=== PATIENT | female | born 1960 | race Caucasian/White ===

== ENCOUNTER 2016-08-14 14:44 | Outpatient (CLI) | payer MEDICAID | END 2016-08-14 14:45 | disposition home or self-care (01) | DX: M75.81 Other shoulder lesions, right shoulder (principal); M25.511 Pain in right shoulder ==

== ENCOUNTER 2017-04-11 08:00 | Outpatient (CLI) | payer OTHER | END 2017-04-11 23:59 | disposition home or self-care (01) | LOC: LAB.R 08:00 | PROVIDERS: ATTEND Nurse Practitioner Family | DX: Z12.11 Encounter for screening for malignant neoplasm of colon (principal) | CPT/HCPCS: 82270 ==

== ENCOUNTER 2017-07-05 15:27 | Outpatient (CLI) | payer OTHER ==
[2017-07-05 19:05] LABS: ALBUMIN/GLOBULIN RATIO 1.8 (1.0-2.2); BILIRUBIN,TOTAL 0.4 mg/dL (0.2-1.0); BUN - BLOOD UREA NITROGEN 21 mg/dL (6-20); CARBON DIOXIDE - CO2 25 mmol/L (21-32); CHLORIDE 105 mmol/L (101-111); CREATININE 0.7 mg/dL (0.4-1.0); GFR - MDRD 86 (>89); GLUCOSE 86 mg/dL (70-100); POTASSIUM 3.5 mmol/L (3.5-5.0); SODIUM 137 mmol/L (135-145); TOTAL PROTEIN 6.7 g/dL (6.7-8.2)
[2017-07-05 19:18] LABS: THYROID STIMULATING HORMONE 9.22 uIU/mL (0.34-5.60)
== END 2017-07-05 15:28 | disposition home or self-care (01) ==
LOC: LAB.S 15:27
PROVIDERS: ATTEND Nurse Practitioner Family
DX: Z13.1 Encounter for screening for diabetes mellitus (principal); Z13.228 Encounter for screening for other metabolic disorders; E03.9 Hypothyroidism, unspecified
CPT/HCPCS: 36415; 80053; 84439; 84443

== ENCOUNTER 2017-08-06 10:32 | Outpatient (CLI) | payer OTHER ==
--- NOTE | 2017-08-06 13:13 | XRAY Report ---
DATE OF SERVICE: 08/06/2017 RIGHT TOES: 08/06/2017 COMPARISON: None. INDICATION: Toe pain. TECHNIQUE: Three views of the toes. FINDINGS: Normal alignment. No evidence of acute fracture. This is a small lucency over the lateral second metatarsal head, possible periarticular erosion. IMPRESSION: POSSIBLE SECOND METATARSOPHALANGEAL JOINT PERIARTICULAR EROSION. OTHERWISE, NEGATIVE TOES. TD: 08/06/2017 14:12 [facility]
== END 2017-08-06 10:33 | disposition home or self-care (01) ==
LOC: DI.S 10:32
PROVIDERS: ATTEND Nurse Practitioner Family
DX: M79.674 Pain in right toe(s) (principal)
CPT/HCPCS: 73660

== ENCOUNTER 2018-07-21 08:46 | Day surgery (SDC) | payer OTHER ==
[2018-07-21 09:09] VITALS: BP 103/70
[2018-07-21] MEDS ORDERED: LACTATED RINGERS 1,000 ML IV ONE (09:21)
== END 2018-07-21 08:47 | disposition home or self-care (01) ==
LOC: SDS 08:46
PROVIDERS: ATTEND Internal Medicine Gastroenterology
DX: Z53.8 Procedure and treatment not carried out for other reasons (principal)

== ENCOUNTER 2018-08-01 08:00 | Outpatient (CLI) | payer OTHER ==
[2018-08-01 19:09] LABS: ALBUMIN 4.1 g/dL (3.2-5.5); ALBUMIN/GLOBULIN RATIO 1.6 (1.0-2.2); ALKALINE PHOSPHATASE 39 IU/L (42-121); ALT ALANINE AMINOTRANSFERASE 16 IU/L (10-60); AST ASPARTATE AMINOTRANSFERASE 19 IU/L (10-42); BILIRUBIN,TOTAL 0.8 mg/dL (0.2-1.0); BUN - BLOOD UREA NITROGEN 17 mg/dL (6-20); CALCIUM 9.3 mg/dL (8.5-10.3); CARBON DIOXIDE - CO2 28 mmol/L (21-32); CHLORIDE 105 mmol/L (101-111); CHOL/HDL RATIO 3.7 (<4.4); CHOLESTEROL 242 mg/dL; CREATININE 0.7 mg/dL (0.4-1.0); GFR - MDRD 85 (>89); GLUCOSE 75 mg/dL (70-100); HDL CHOLESTEROL 66 mg/dL; LDL CHOLESTEROL,CALCULATED 156 mg/dL; LDL/HDL RATIO 2.4 (<4.4); SODIUM 139 mmol/L (135-145); TOTAL PROTEIN 6.7 g/dL (6.7-8.2); VLDL CHOLESTEROL 20 mg/dL
== END 2018-08-01 23:59 | disposition home or self-care (01) ==
LOC: LAB.S 08:00
PROVIDERS: ATTEND Nurse Practitioner Family
DX: E03.9 Hypothyroidism, unspecified (principal); Z13.6 Encounter for screening for cardiovascular disorders
CPT/HCPCS: 36415; 80053; 80061; 83721; 84443

== ENCOUNTER 2018-09-21 14:40 | Outpatient (CLI) | payer OTHER ==
--- NOTE | 2018-09-22 08:33 | Mammography Report ---
Reason: SCREENING EXAM FOR BREAST CANCER Procedure Date: 09/21/2018 Accession Number: [id number] / [id number] Procedure: JEANETTE - Screening Mammo w/Clyde CPT Code: FULL RESULT: EXAM: Screening Mammo w/Clyde DATE: 09/21/2018 4:29 PM CLINICAL HISTORY: Screening encounter. History of nulliparity. TECHNIQUE: Bilateral CC and MLO views were obtained. COMPARISON: 12/03/2015 through 09/13/2014. FINDINGS: The breasts demonstrate heterogeneously dense fibroglandular parenchyma bilaterally. No suspicious masses, clustered microcalcifications, or regions of architectural distortion are identified. IMPRESSION: Negative examination RECOMMENDATION: Routine annual screening unless otherwise clinically indicated. BIRADS CATEGORY 1: Negative STANDARD QUALIFYING STATEMENTS: 1. This examination was not reviewed with the aid of Computer-Aided Detection (CAD). 2. A negative or benign imaging report should not delay biopsy if clinically suspicious findings are present. Consider surgical consultation if warrented. More than 5% of cancers are not identified by imaging. 3. Dense breasts may obscure an underlying neoplasm. 4. This examination was reviewed with the aid of 3D breast imaging (tomosynthesis).
== END 2018-09-21 14:41 | disposition home or self-care (01) ==
LOC: DI 14:40
PROVIDERS: ATTEND Nurse Practitioner
DX: Z12.31 Encounter for screening mammogram for malignant neoplasm of breast (principal)
CPT/HCPCS: 77063; 77067

== ENCOUNTER 2019-03-01 10:20 | Outpatient (CLI) | payer OTHER ==
[2019-03-01 17:48] LABS: BASOPHILS # (AUTO) 0.1 10^3/uL (0.0-0.1); BASOPHILS % (AUTO) 1.3 %; EOSINOPHILS # (AUTO) 0.2 10^3/uL (0.0-0.7); HGB - HEMOGLOBIN 13.9 g/dL (12.0-16.0); LYMPHOCYTES # (AUTO) 1.1 10^3/uL (1.5-3.5); LYMPHOCYTES % (AUTO) 13.6 %; MEAN CORPUSCULAR VOLUME 93.7 fL (81.0-99.0); MONOCYTES # (AUTO) 0.8 10^3/uL (0.0-1.0); MONOCYTES % (AUTO) 9.8 %; NEUTROPHILS # (AUTO) 5.8 10^3/uL (1.5-6.6); PLT - PLATELET COUNT 318 10^3/uL (130-450); RED BLOOD COUNT 4.63 10^6/uL (4.20-5.40); RED CELL DISTRIBUTION WIDTH 14.1 % (12.0-15.0); WHITE BLOOD COUNT 7.9 x10^3/uL (4.8-10.8)
[2019-03-01 18:09] LABS: ALBUMIN 4.3 g/dL (3.2-5.5); ALBUMIN/GLOBULIN RATIO 1.5 (1.0-2.2); BILIRUBIN,TOTAL 0.7 mg/dL (0.2-1.0); CALCIUM 9.4 mg/dL (8.5-10.3); CREATININE 0.7 mg/dL (0.4-1.0); TOTAL PROTEIN 7.2 g/dL (6.7-8.2)
== END 2019-03-01 10:21 | disposition home or self-care (01) ==
LOC: LAB.S 10:20
PROVIDERS: ATTEND Physician Assistant Medical
DX: E03.9 Hypothyroidism, unspecified (principal); F41.8 Other specified anxiety disorders; Z51.81 Encounter for therapeutic drug level monitoring; Z79.899 Other long term (current) drug therapy
CPT/HCPCS: 36415; 80053; 84443; 85025

== ENCOUNTER 2019-06-12 12:20 | Outpatient (CLI) | payer OTHER | END 2019-06-12 12:21 | disposition home or self-care (01) | LOC: LAB.S 12:20 | PROVIDERS: ATTEND Physician Assistant Medical | DX: E03.9 Hypothyroidism, unspecified (principal) | CPT/HCPCS: 36415; 84443 ==